=== PATIENT | female | born 1980 | race Caucasian/White ===

== ENCOUNTER → 2016-07-07 | Outpatient (CLI) | payer MEDICARE, OTHER ==
[~2016-07-07] MED LIST: ALLEGRA PO; ASPIRIN EC81 M1 PO; CLARITIN10 M2 PO; PRENATAL1 TA1 PO; PROZAC PO; YASMIN 28 TABLE1 TAB PO; ZYRTEC PO
--- NOTE | ~2016-07-07 | CT57 ---
[facility] A Service of [facility] & [facility] RADIOLOGY TEXT RESULTS PATIENT: ADÁN MEYER LOCATION: [facility] : 80 UNIT #: [id number] AGE: [address]: Harinder Garcia MD SEX: F ORDER DR: [id number] [facility] [address] [place], [place] [address] [id number] O MR#: [id number] #: [id number] NAME: ADÁN MEYER : 1980 SEX: F STUDY DATE/TIME: 07/07/2016 10:40 UNIT: [facility] ROOM: STUDY DESCRIPTION: CT Chest Wo Cont Attending Physician: Harinder Garcia Referring Physician: Harinder Garcia Ordering Physician: Abdiaziz Garcia M.D. Primary Care Physician: Nir Rivas M.D. MEDICAL IMAGING REPORT This report is preliminary unless electronic signature is present EXAM CT chest without contrast INDICATIONS Follow up pulmonary nodule. Cough since January 23, 2016. PROCEDURE Unenhanced CT of the chest. This CT exam was performed with one or more of the following radiation dose reduction techniques: automatic exposure control, adjustment of mA and/or kV according to patient size, and iterative reconstruction. COMPARISON 04/03/2016 FINDINGS Area of ground-glass opacity in the left upper lobe shown on the prior is almost completely resolved. There is a new small area of ground-glass opacity in the right upper lobe that measures 1.6 cm. There is mild diffuse mosaic attenuation throughout both lungs, which is a nonspecific finding. A subpleural nodule posterior right upper lobe measures 9-10 mm and is stable. A right middle lobe fissural nodule is stable measuring 8 mm. There are scattered subpleural nodules in the right lung that are stable. Nodules in the left upper lobe are stable. Index nodule measures 5-6 mm. There is no pleural fluid. No pneumothorax. No new dense consolidation. Mildly prominent mediastinal lymph nodes are stable. Hepatomegaly with diffuse steatosis. Nondisplaced posterolateral right 7th rib fracture is not completely healed, but shows surrounding callus. IMPRESSION 1. Ground-glass opacity previously shown in the left upper lobe has almost completely resolved. However there is a new small area of STS. [facility] A Service of [facility] RADIOLOGY TEXT RESULTS PATIENT: ADÁN MEYER LOCATION: [facility] : 80 UNIT #: [id number] AGE: [address]: Harinder Garcia MD SEX: F ORDER DR: ground-glass opacity in the right upper lobe. Findings are most suggestive of an infectious or inflammatory process. 2. Scattered nodules in both lungs with index measurements above are unchanged from the previous study and there is no new dense consolidation. 3. Hepatomegaly with significant steatosis. Dictated by... Missael Gonzalez M.D. THIS IS AN ELECTRONICALLY VERIFIED REPORT Missael Gonzalez M.D. at 07/10/2016 7:43 AM EED/michelle TD: 07/07/2016 15:04 JOB #: [id number] MEDICAL IMAGING REPORT Page 1 of 1 COPY
== END | disposition home or self-care (01) ==
LOC: CCAT 10:24
DX: J45.31 Mild persistent asthma with (acute) exacerbation (principal); G47.33 Obstructive sleep apnea (adult) (pediatric); J20.9 Acute bronchitis, unspecified; R91.8 Other nonspecific abnormal finding of lung field; K76.0 Fatty (change of) liver, not elsewhere classified; R16.0 Hepatomegaly, not elsewhere classified; Z87.01 Personal history of pneumonia (recurrent)
CPT/HCPCS: 71250

== ENCOUNTER → 2016-08-01 | Outpatient (CLI) | payer MEDICARE, OTHER | END | disposition home or self-care (01) | LOC: CRAD 09:38 | DX: R13.10 Dysphagia, unspecified (principal) | CPT/HCPCS: 74230; 92611; G8996-GN; G8997-GN; G8998-GN ==